=== PATIENT | female | born 1985 | race African-American/Black ===

== ENCOUNTER 2021-02-16 03:48 | Emergency (ER) | payer MEDICAID ==
[~2021-02-16] VITALS: Ht 175.3 cm; Wt 109.0 kg
[2021-02-16 03:56] VITALS: BP 150/104
== END 2021-02-16 06:58 | disposition home or self-care (01) ==
LOC: ER 03:48 → EDSEX 03:48 → ER 06:58
DX: S60.455A Superficial foreign body of left ring finger, initial encounter (principal); J45.909 Unspecified asthma, uncomplicated; I10 Essential (primary) hypertension; X58.XXXA Exposure to other specified factors, initial encounter; Y93.89 Activity, other specified; Y92.89 Other specified places as the place of occurrence of the external cause; Y99.8 Other external cause status
CPT/HCPCS: 99284